=== PATIENT | male | born 2000 ===

== ENCOUNTER → 2020-06-30 | Outpatient (CLI) | payer SELFPAY ==
[~2020-06-30] MED LIST: COVID-19 VACCINE (PFIZER)/PF 30 MCG/0.3 ML VIAL IM ONE; EPINEPHRINE INJ/PF 1 MG/1 ML AMPULE IM PRN
--- OUTSIDE RECORDS SUMMARY | 2020-07-03 10:07 | XMS REPORT ---
:2000 [facility] [address] [place] [address] Care Team Providers Name Role Phone [facility] Physician Yasmin Tabor PA-C Attending Clinician Unavailable KHADRA Stallworth Attending Clinician Unavailable KHADRA Stallworth T Attending Clinician Unavailable AMI ALLAN Attending Clinician Unavailable Corrine ALLAN Attending Clinician Unavailable Anahy MURRY Attending Clinician Unavailable Anahy MENDEZ PA-C Attending Clinician Unavailable SERA CHAVEZ Attending Clinician Unavailable ANA LAMBERT Attending Clinician Unavailable CAMILLE Attending Clinician Unavailable GARRET Attending Clinician Unavailable SHIVANI Attending Clinician Unavailable ROSSY Attending Clinician Unavailable JEANMARIE Attending Clinician Unavailable KHADRA Stallworth T Admitting Clinician Unavailable Juan R HYLTON PSY.D Admitting Clinician Unavailable TELEPSYCH Admitting Clinician Unavailable Allergies, Adverse Reactions, Alerts This patient has no known allergies or adverse reactions. Medications Ordered Filled Start Stop Current Ordering Indication Dosage Frequency Signature Comments Components Medication Medication Date Date Medication? Clinician (SIG) Name Name propranolol 2020- No 10mg Take 1 Take 1 (INDERAL) 02-10 tablet (10 table t 10 MG 00:00: 23:59 mg total) (10 mg tablet 00 :00 by mouth total) by Two (2) mouth Two times a (2) times day. a day. divalproex 2018- Yes Take two Take two (DEPAKOTE) 5-[address] tablets tablets [address] 00:00: and night and n ight tablet 00 (total (total 1000mg) 1000mg) and take 1 and take tablet in 1 tablet the in the morning morning (along (along with a with a 250mg 250mg pill) pill) divalproex Yes Take one Take one (DEPAKOTE) 5-31 tablet in table t in [address] 00:00: the the tablet 00 morning morning (along (along with 500mg with tablet of 500mg Depakote) tablet of Depakote) propranolol 2018- No 10mg Take 1 Take 1 (INDERAL) 5-31 -31 tablet (10 table t 10 MG 00:00: 00:00 mg total) (10 mg tablet 00 :00 by mouth total) by Two (2) mouth Two times a (2) times day. a day. divalproex 2018- No Take two Take two (DEPAKOTE) 5-17 05-31 tablets tablets [address] 00:00: 00:00 and night and n ight tablet 00 :00 (total (total 1000mg) 1000mg) and take 1 and take tablet in 1 tablet the in the morning morning (along (along with a with a 250mg 250mg pill) pill) divalproex 2018- No Take one Take one (DEPAKOTE) 5-17 -31 tablet in table t in [address] 00:00: 00:00 the the tablet 00 :00 morning morning (along (along with 500mg with tablet of 500mg Depakote) tablet of Depakote) fluticasone 2019- No 1{spray 1 spray by 1 spray propionate 09-01 } Each Nare by Ea (FLONASE) 00:00: 23:59 route Nare 50 00 :00 daily. route mcg/actuati daily. on nasal spray propranolol 2018- No 10mg Take 1 Take 1 (INDERAL) -27 -31 tablet (10 table t 10 MG 00:00: 00:00 mg total) (10 mg tablet 00 :00 by mouth total) by Two (2) mouth Two times a (2) times day. a day. omega-3 2018- No 1{capsu Take 1 Take 1 fatty 2-08 le} capsule by capsule acids-fish 13:04: mouth. by mout h. oil 10 340-1,000 mg capsule omega-3 0 Yes 1{capsu Take 1 Take 1 fatty 2-08 le} capsule by capsule acids-fish 13:04: mouth. by mout h. oil 10 340-1,000 mg capsule divalproex No Take two Take two (DEPAKOTE) 2-[address] tablets tablets [address] 00:00: and night and n ight tablet 00 (total (total 1000mg) 1000mg) and take 1 and take tablet in 1 tablet the in the morning morning (along (along with a with a 250mg 250mg pill) pill) divalproex No Take one Take one (DEPAKOTE) 2-08 tablet in table t in [address] 00:00: the the tablet 00 morning morning (along (along with 500mg with tablet of 500mg Depakote) tablet of Depakote) divalproex No Take two Take two (DEPAKOTE) 2-[address] tablets tablets [address] 00:00: and night and n ight tablet 00 (total (total 1000mg) 1000mg) and take 1 and take tablet in 1 tablet the in the morning morning (along (along with a with a 250mg 250mg pill) pill) divalproex No Take one Take one (DEPAKOTE) 2-08 tablet in table t in [address] 00:00: the the tablet 00 morning morning (along (along with 500mg with tablet of 500mg Depakote) tablet of Depakote) divalproex 2017-06- No 500MG Take 1 Take 1 (DEPAKOTE) 0-30 02-[address] tablet tablet [address] 00:00: 00:00 (500 mg (500 mg tablet 00 :00 total) by total) by mouth Two mouth Two (2) times (2) times a day. a day. divalproex 2017-06- No 250MG Take 1 Take 1 (DEPAKOTE) 0-30 02-[address] tablet tablet [address] 00:00: 00:00 (250 mg (250 mg tablet 00 :00 total) by total) by mouth Two mouth Two (2) times (2) times a day. a day. divalproex 2017- No 250MG Take 1 Take 1 (DEPAKOTE) 9-12 10-[address] tablet tablet [address] 00:00: 00:00 (250 mg (250 mg tablet 00 :00 total) by total) by mouth mouth every every morning. morning. divalproex 2017- No 500MG Take 1 Take 1 (DEPAKOTE) 9-12 10-[address] tablet tablet [address] 00:00: 00:00 (500 mg (500 mg tablet 00 :00 total) by total) by mouth Two mouth Two (2) times (2) times a day. a day. sertraline 2017- No Take 37.5 Take 37.5 (ZOLOFT) 25 6-08 10-30 mg for two mg for MG tablet 00:00: 00:00 weeks, two 00 :00 then weeks, increase then to 50 mg. increase to 50 mg. divalproex 2017- No 250MG Take 1 Take 1 (DEPAKOTE) 11-1312 tablet tablet [address] 00:00: 00:00 (250 mg (250 mg tablet 00 :00 total) by total) by mouth mouth every every morning. morning. divalproex 2017- No 500MG Take 1 Take 1 (DEPAKOTE) 11-1312 tablet tablet [address] 00:00: 00:00 (500 mg (500 mg tablet 00 :00 total) by total) by mouth Two mouth Two (2) times (2) times a day. a day. sertraline 2017- No TAKE 1/2 TAKE 1/2 (ZOLOFT) 25 -24 06-08 TABLET(12. TAB LET(12 MG tablet 00:00: 00:00 5 MG) BY .5 MG) BY 00 :00 MOUTH MOUTH DAILY. DAILY. START AT START AT 12.5 MG 12.5 MG EVERY DAY EVERY DAY FOR 2 FOR 2 WEEKS, WEEKS, THEN. THEN. INCREASE INCREASE TO 25 MG TO 25 MG EVERY DAY EVERY DAY cholecalcif Yes 2000U Take 1 Take 1 anahi, 3-14 tablet tablet vitamin D3, 00:00: (2,000 (2,000 2,000 unit 00 Units Units tablet total) by total) by mouth mouth daily. daily. 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 nightly. 49 divalproex 2017- No 500MG Take 1 Take 1 (DEPAKOTE) 3-[address] tablet tablet [address] 00:00: 00:00 (500 mg (500 mg tablet 00 :00 total) by total) by mouth Two mouth Two (2) times (2) times a day. a day. divalproex 2017- No 250MG Take 1 Take 1 (DEPAKOTE) 08-11-[address] tablet tablet [address] 00:00: 00:00 (250 mg (250 mg tablet 00 :00 total) by total) by mouth mouth every every morning. morning. omega-3 No 1{capsu Take 1 Take 1 fatty 09-12 le} capsule by capsule acids-fish 13:40: mouth. by mout h. oil 35 340-1,000 mg capsule levothyroxi 2017- No TK 1 T PO TK 1 T PO ne 08-13 10-30 QD QD (SYNTHROID, 00:00: 00:00 LEVOTHROID) 00 :00 50 MCG tablet Benztropine No Moy 1 Once Per Mesylate 07-30 Do Day (Cogentin*) 00:00: 00:00 1 Mg 00 :00 Tablet, 1 Mg Oral Divalproex No Moy 500 Twice Per Sodium 07-30 Day (Depakote 00:00: 00:00 Dr Tab*) 00 :00 500 Mg Tablet.dr, 500 Mg Oral Hydroxyzine 2017- No Moy 50 Every 6 Pamoate 07-30 Warner Do Hours as (Vistaril*) 00:00: 00:00 needed for 50 Mg 00 :00 Anxiety/Ag Capsule, 50 itation Mg Oral Olanzapine 2017- No Moy 5 Once Per (Zyprexa*) 07-30 Do Day At 5 Mg 00:00: 00:00 Bedtime Tablet, 5 00 :00 Mg Oral Trimethopri No Brooks L 2 Twice Per m/Sulfameth 01-[address] [facility] Day oxazole 00:00: 00:00 Mendez (Bactrim 00 :00 Ds*) 800/160 Mg Tab, 2 Tab Oral Trimethopri 2014-06 No Brooks L 2 Twice Per m/Sulfameth 07-09 [facility] Day oxazole 00:00: 00:00 Roberto (Bactrim 00 :00 Ds*) 800/160 Mg Tab, 2 Tab Oral Trimethopri 2014- No Tara 2 Twice Per m/Sulfameth 11-05 Sell Do Day oxazole 00:00: 00:00 (Bactrim 00 :00 Ds*) 800/160 Mg Tab, 2 Tab Oral Cholecalcif Yes 2000 Once Per anahi Day (Vitamin D Tab*) 1,000 Unit Tab Clonazepam Yes .5 Twice Per (Klonopin*) Day 0.5 Mg Tablet Fish Oil Yes 1000 Twice Per (Berwick 3 Day Fish Oil Cap*) 1,000 Mg Cap Lactobacill No 1 Twice Per us* Day (Lactinex*) 1 Ea Tab Levothyroxi Yes 50 Daily ne Sodium Before (Synthroid* Breakfast ) 50 Mcg Tablet Melatonin Yes 5 Once Per (Melatonin* Day At ) 5 Mg Bedtime Tablet Metformin Yes 500 Daily With Hcl Morning (Glucophage Meal *) 500 Mg Tab Methylpheni Yes 27 Once Per date Hcl Day (Concerta*) 27 Mg Tab.er.24 Multivitami No 1 Once Per ns/Minerals Day * (Multivitam ins/Mineral s Tab*) 1 Each Tablet Olanzapine Yes 2.5 Once Per (Zyprexa*) Day At 2.5 Mg Bedtime Tablet Polyethylen No 17 Once Per e Glycol Day as (Miralax*) needed for 1 Btl Constipati on Terbinifine No 1 Twice Per * (Lamisil Day Af*) 15 Gm Cream..g. Melatonin No 5 Once Per (Melatonin* Day At ) 5 Mg Bedtime Tablet Lactobacill 2017- No 1 Twice Per us* - Day (Lactinex*) 00:00 1 Ea Tab, 1 :00 Tab Oral Multivitami 2017- No 1 Once Per ns/Minerals - Day (Multivitam 00:00 ins/Mineral :00 s Tab) 1 Each Tablet, 1 Tab Oral Polyethylen No 17 Once Per e Glycol 07-25 Day as (Miralax*) 00:00 needed for 1 Btl, 17 :00 Constipati Gm Oral on Terbinafine 2016- No 1 Twice Per Hcl 07-25 Day (Lamisil Af 00:00 Cream*) 15 :00 Gm Cream..g., 1 Applic Applied To The Skin Polyethylen 2017- No 17 Once Per e Glycol 07-25 Day as (Miralax) 1 00:00 needed for Btl, 17 Gm :00 Constipati Oral on Problems Condition Condition Condition Status Onset Resolution Last Treatin g Comments Name Details Category Date Date Treatment Clinician Date Left ankle Problem Resolve 0 sprain d 7-13 15:25: 00 Left leg Problem Inactiv 2018-0 pain e 5-20 21:39: 00 Left leg Problem Resolve 0 pain d 5-20 21:39: 00 Encounter Problem Inactiv for wound e - re-check 18:56: 00 Encounter Problem Inactiv 0 for wound e 08-27 re-check 18:56: 00 Encounter Problem Active 0 for wound - re-check 18:56: 00 Cellulitis Problem Inactiv 2017-0 e 3-10 14:43: 00 Cellulitis Problem Inactiv 0 e - 14:43: 00 Cellulitis Problem Inactiv 0 e 3-10 14:43: 00 Cellulitis Problem Active 0 -10 14:43: 00 Prader-Will Prader-Will Condition Active 2016-10-05 i syndrome i syndrome 10-05 16:44:01 00:00: 00 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), combined type Anxiety Problem Inactiv disorder e 08-04 due to 15:57: medical 00 condition Behavior Problem Inactiv problem at e 08-04 school 15:57: 00 Prader-Will Problem Inactiv i syndrome e 08-04 15:57: 00 ADHD Problem Inactiv (attention e 2-27 deficit 15:57: hyperactivi 00 ty disorder), combined type Anxiety Problem Inactiv disorder e 08-04 due to 15:57: medical 00 condition Behavior Problem Inactiv problem at e 08-04 school 15:57: 00 Prader-Will Problem Inactiv i syndrome e 08-04 15:57: 00 ADHD Problem Inactiv (attention e 2-27 deficit 15:57: hyperactivi 00 ty disorder), combined type Anxiety Problem Inactiv disorder e 08-04 due to 15:57: medical 00 condition Behavior Problem Inactiv 2017- problem at e 2-27 school 15:57: 00 Prader-Will Problem Inactiv i syndrome e 08-04 15:57: 00 ADHD Problem Active (attention 08-04 deficit 15:57: hyperactivi 00 ty disorder), combined type Anxiety Problem Active disorder 08-04 due to 15:57: medical 00 condition Behavior Problem Active 2016- problem at - school 15:57: 00 Prader-Will Problem Active i syndrome 08-04 15:57: 00 Involuntary Involuntary Problem Inactiv 2016- commitment commitment e 2 16:40: 00 Prader-Will Prader-Will Problem Inactiv i syndrome i syndrome e 2 16:40: 00 Involuntary Problem Inactiv commitment e 2 16:40: 00 Prader-Will Problem Inactiv i syndrome e 2 16:40: 00 Involuntary Problem Inactiv 2016- commitment e 2 16:40: 00 Prader-Will Problem Inactiv i syndrome e 2 16:40: 00 Involuntary Problem Inactiv 2016- commitment e 2 16:40: 00 Prader-Will Problem Inactiv i syndrome e 2 16:40: 00 Involuntary Problem Active 2016-0 commitment 2-22 16:40: 00 Prader-Will Problem Active 2016- i syndrome 222 16:40: 00 Behavior Behavior Problem Inactiv 2017-0 problem at problem at e 2-15 school school 14:40: 00 Behavior Problem Inactiv 2017-0 problem at e 2-15 school 14:40: 00 Behavior Problem Inactiv 2017-0 problem at e 2-15 school 14:40: 00 Behavior Problem Inactiv 2017-0 problem at e 2-15 school 14:40: 00 Behavior Problem Active 2017-0 problem at 2-15 school 14:40: 00 Aggressive Aggressive Problem Inactiv 2015-06 behavior of behavior of e 06-15 adolescent adolescent 18:53: 00 History of History of Problem Inactiv 2015-06 Prader-Will Prader-Will e 06-15 i syndrome i syndrome 18:53: 00 Aggressive Problem Inactiv 2015-06 behavior of e 06-15 adolescent 18:53: 00 History of Problem Inactiv 2015-06 Prader-Will e 06-15 i syndrome 18:53: 00 Aggressive Problem Inactiv 2015-06 behavior of e -08 adolescent 18:53: 00 History of Problem Inactiv 2015-06 Prader-Will e 06-15 i syndrome 18:53: 00 Aggressive Problem Inactiv 2015-06 behavior of e -08 adolescent 18:53: 00 History of Problem Inactiv 2015-06 Prader-Will e 06-15 i syndrome 18:53: 00 Aggressive Problem Active 2015-06 behavior of 08 adolescent 18:53: 00 History of Problem Active 2015-06 Prader-Will 06-15 i syndrome 18:53: 00 Contusion Contusion Problem Inactiv 2015-0 of lower of leg e 03-02 extremity 14:24: 00 Contusion Problem Inactiv 2015-0 of leg e 03-02 14:24: 00 Contusion Problem Inactiv 2015-0 of leg e 03-02 14:24: 00 Contusion Problem Inactiv 2015-0 of leg e 03-02 14:24: 00 Contusion Problem Active 2015-0 of leg 03-02 14:24: 00 Cellulitis Cellulitis Problem Inactiv and abscess and abscess e 8-15 of lower of leg 11:51: extremity 00 Cellulitis Problem Inactiv 0 and abscess e 8-15 of leg 11:51: 00 Cellulitis Problem Inactiv 0 and abscess e 8-15 of leg 11:51: 00 Cellulitis Problem Inactiv 0 and abscess e 8-15 of leg 11:51: 00 Cellulitis Problem Active and abscess 8-15 of leg 11:51: 00 Right ankle Right ankle Problem Inactiv 2015-0 sprain sprain e 16 23:54: 00 Right ankle Problem Inactiv 2015-0 sprain e 16 23:54: 00 Right ankle Problem Inactiv 2015-0 sprain e 16 23:54: 00 Right ankle Problem Inactiv 2015-0 sprain e 16 23:54: 00 Right ankle Problem Active 2015-0 sprain 16 23:54: 00 Abscess Abscess Problem Inactiv 2014-0 e 11-05 16:26: 00 Abscess Problem Inactiv 2014-0 e 11-05 16:26: 00 Abscess Problem Inactiv 0 e 11-05 16:26: 00 Abscess Problem Inactiv 0 e 11-05 16:26: 00 Abscess Problem Active 0 11-05 16:26: 00 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 Procedures Procedure Date / Time Performed Performing Clinician Kenna trinidad EMERGENCY DEPT VISIT 2017-08-15 00:00:00 [place] 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 Comparison: None Technique: 3 views of left foot and 4 views of left ankle Findings: T he osseous structures are normal alignment. The joint spaces are maintained. There are no acute f ractures. There is diffuse subcutaneous edema. IMPRESSION: No evidence for acute osseous in jury to the left ankle or foot. Final report electronically signed by: Rick Joseph MD Signed by: RICK JOSEPH MD 12/18/18 1266 cc: LAUREANO LAM PA-C, DENNIS MD RADIOLOGY 2018-12-18 [facility] 14:55:[address] [place] [id number] Patient: BLESSING BEARD : 2000 Sex: M Address: [address] [place] [address] [place], [place] [address] Unit #: [id number] RE SEQ #: [id number] Location: [facility] Room #: Ordering: LAUREANO LAM PA-C Diagnosis: LT LEG INJURY/YESTERDAY History: Injured leg yesterday. Comparison: None Technique: 3 views of left foot and 4 views of left ankle Findings: T he osseous structures are normal alignment. The joint spaces are maintained. There are no acute f ractures. There is diffuse subcutaneous edema. IMPRESSION: No evidence for acute osseous in jury to the left ankle or foot. Final report electronically signed by: Rick Joseph MD Signed by: RICK JOSEPH MD 12/18/18 [id number] cc: LAUREANO LAM PA-C, DENNIS MD ULTRASOUND 2018-10-25 [facility] 21:00:00 3500 [facility] [address] Patient: BLESSING BEARD : 2000 Sex: M Address: [address] [place] [address] [place], [place] [address] Unit #: [id number] REQ SEQ #: [id number] Location: [facility] Room #: Ordering: LATRICE BLACKWELL Diagnosis: R ARM/L ANKLE PAIN Clinical History: Left lower extremity pain a nd edema. Comparison: 03/02/2016. Findings: Grayscale and color Doppler evaluation with spectral analysis left lower extremity veins. Left external iliac vein is patent with normal wave form. There is normal flow and compressibility left common femoral, superficial femoral and po pliteal veins. The left greater saphenous and profunda femoral veins are patent. Posterior tibi al and peroneal veins are patent. For comparison, the right common femoral vein is patent. Imp ression: No evidence of deep vein thrombosis left lower extremity. Final report yon ashraf signed by: Silver Zavala MD Signed by: SILVER ZAVALA MD 10/25/182055 cc: Baltazar BAZAN HEATHER M MD RADIOLOGY 2018-10-25 [facility] 20:24:[address] [place] [address] [id number] Patient: BLESSING BEARD : 2000 Sex: M Address: [address] [place] [address] [place], [place] [address] [id number] #: [id number] [facility] SEQ #: [id number] Location: [facility] Room #: Ordering: LATRICE BLACKWELL Diagnosis: R ARM/L ANKLE PAIN Exam: 2 views of the left tibia and fibula, 3 vi ews of the left ankle and 3 views of the left foot DATE OF EXAM: 10/25/2018 INDICATIONS: Andrei n COMPARISON: Left tibia and fibula 03/02/2016 FINDINGS: Tibia and fibula: There is no fracture. Ankle and foot: There is no fracture or dislocation. The ankle mortise appears intact. IMPRESSION: No acute osseous abnormality. Final report electronically s igned by: Maria Solis MD Signed by: SIMONA SOLIS MD 10/25/182019 cc: LATRICE BAZAN ROSEMARY H MD RADIOLOGY 2018-10-25 [facility] 20:24:[address] [place] [address] [id number] Patient: BLESSING BEARD : 2000 Sex: M Address: [address] [place] [address] [place], [place] [address] Unit #: [id number] REQ SEQ #: [id number] Location: [facility] Room #: Ordering: LATRICE BLACKWELL Diagnosis: R ARM/L ANKLE PAIN Exam: 2 views of the left tibia and fibula, 3 vi ews of the left ankle and 3 views of the left foot DATE OF EXAM: 10/25/2018 INDICATIONS: Andrei n COMPARISON: Left tibia and fibula 03/02/2016 FINDINGS: Tibia and fibula: There is no fracture. Ankle and foot: There is no fracture or dislocation. The ankle mortise appears intact. IMPRESSION: No acute osseous abnormality. Final report electronically s igned by: Maria Solis MD Signed by: SIMONA SOLIS MD 10/25/182019 cc: LATRICE BAZAN ROSEMARY H MD RADIOLOGY 2018-10-25 [facility] 20:24:00 3500 [facility] [id number] Patient: BLESSING BEARD : 2000 Sex: M Address: [address] [place] [address] [place], [place] [address] Unit #: [id number] REQ SEQ #: [id number] Location: [facility] Room #: Ordering: LATRICE BLACKWELL Diagnosis: R ARM/L ANKLE PAIN Exam: 2 views of the left tibia and fibula, 3 vi ews of the left ankle and 3 views of the left foot DATE OF EXAM: 10/25/2018 INDICATIONS: Andrei n COMPARISON: Left tibia and fibula 03/02/2016 FINDINGS: Tibia and fibula: There is no fracture. Ankle and foot: There is no fracture or dislocation. The ankle mortise appears intact. IMPRESSION: No acute osseous abnormality. Final report electronically s igned by: Maria Solis MD Signed by: SIMONA SOLIS MD 10/25/182019 cc: LATRICE BAZAN ROSEMARY H MD RADIOLOGY 2017-03-[address] [address] 22:02:00 Patient: BLESSING BEARD : [birth year] Sex: M Address: [address] [place] [address] [place], [place] [address] Unit #: [id number] RE SEQ #: [id number] Location: [facility] Room #: Ordering: AXEL PEREZ Diagnosis: [id number] History: Pain in the right lower extremity for 2 weeks. Comparison: Right leg and ankle performed on 06/23/2015 Technique: 4 vie ws of the right knee, AP and lateral radiographs of the right leg and 3 views of the right ankle. Findings: Alignment of the knee is normal. The joint spaces are maintained. There is no arth ropathy or focal osseous abnormality. The tibia and fibula appear within normal limits. No focal osseous abnormalities are noted. There is no periosteal reaction. Alignment of the ankle is normal. Ankle mortise is maintained. A small sub-tibial or ossicle is chronic. There is no arthropa thy or focal osseous abnormality. There is diffuse thickening of the subcutaneous sof t tissues. Impression: 1. Unremarkable appearance to the right knee, right leg and right ankle. Final report electronically signed by: Rick Joseph MD Signed by: MARGARITA JOSEPH MD 03/19/17 [id number] cc: AXEL [facility] RICK JOSEPH MD RADIOLOGY 2017-03-[address] [address] 22:02:00 Patient: BLESSING BEARD : [birth year] Sex: M Address: [address] [facility] [place], [place] [address] [id number] Unit #: [id number] REQ SEQ #: [id number] Location: [facility] Room #: Ordering: AXEL PEREZ Diagnosis: [id number] History: Pain in the right lower extremity for 2 weeks. Comparison: Right leg and ankle performed on 06/23/2015 Technique: 4 vie ws of the right knee, AP and lateral radiographs of the right leg and 3 views of the right ankle. Findings: Alignment of the knee is normal. The joint spaces are maintained. There is no arth ropathy or focal osseous abnormality. The tibia and fibula appear within normal limits. No focal osseous abnormalities are noted. There is no periosteal reaction. Alignment of the ankle is normal. Ankle mortise is maintained. A small sub-tibial or ossicle is chronic. There is no arthropa thy or focal osseous abnormality. There is diffuse thickening of the subcutaneous sof t tissues. Impression: 1. Unremarkable appearance to the right knee, right leg and right ankle. Final report electronically signed by: Rick Joseph MD Signed by: MARGARITA JOSEPH MD 03/19/17 1235 cc: AXEL LAMBERT DENNIS MD RADIOLOGY 2017-03-[address] [id number] 22:02:00 Patient: BLESSING BEARD : [birth year] Sex: M Address: [address] [place] [address] [place], [place] [address] Unit #: [id number] [facility] SEQ #: [id number] Location: [facility] Room #: Ordering: AXEL PEREZ Diagnosis: [id number] History: Pain in the right lower extremity for 2 weeks. Comparison: Right leg and ankle performed on 06/23/2015 Technique: 4 vie ws of the right knee, AP and lateral radiographs of the right leg and 3 views of the right ankle. Findings: Alignment of the knee is normal. The joint spaces are maintained. There is no arth ropathy or focal osseous abnormality. The tibia and fibula appear within normal limits. No focal osseous abnormalities are noted. There is no periosteal reaction. Alignment of the ankle is normal. Ankle mortise is maintained. A small sub-tibial or ossicle is chronic. There is no arthropa thy or focal osseous abnormality. There is diffuse thickening of the subcutaneous sof t tissues. Impression: 1. Unremarkable appearance to the right knee, right leg and right ankle. Final report electronically signed by: Rick Joseph MD Signed by: MARGARITA JOSEPH MD 03/19/17 [id number] cc: AXEL LAMBERT STEEL UNLOADERRICK LUNA MD Valproate level 2016-07-30 14:30:00 Test Item Value Reference Range Comments Valproate level (test code = 4086-5) 81.2 50.0-120.0 Total bilirubin measurement (moles/volume)2016-07-25 20:35:00 Test Item Value Reference Range Comments Total bilirubin measurement (moles/volume) (test code 0.9 0.2-1.3 = 03844-2) Total protein [id number] 20:35:00 Test Item Value Reference Range Comments Total protein blood (test code = 2885-2) 6.9 6.3-8.2 Serum or plasma albumin measurement (mass/volume)2016-07-25 20:35:00 Test Item Value Reference Range Comments Serum or plasma albumin measurement (mass/volume) 4.0 3.5-5.0 (test code = 1751-7) Serum globulin qlxooemdskn2898-62-68 20:35:00 Test Item Value Reference Range Comments Serum globulin measurement (test code = 125566438) 2.9 1.2-3.2 Serum or plasma albumin/globulin mass laeer2277-23-39 20:35:00 Test Item Value Reference Range Comments Serum or plasma albumin/globulin mass ratio (test code 1.4 1.1-2.5 = 1759-0) Aspartate aminotransferase (AST) to alanine aminotransferase (ALT) ratio 2016-07-25 20:35:00 Test Item Value Reference Range Comments Aspartate aminotransferase (AST) to alanine 37 17-5 9 aminotransferase (ALT) ratio (test code = 1916-6) Alkaline phosphatase isoenzymes gosmnhyusfe0683-62-35 20:35:00 Test Item Value Reference Range Comments Alkaline phosphatase isoenzymes measurement (test code 163 81-126 = 10462-8) Serum or plasma alanine aminotransferase measurement (enzymatic activity/volume) 2016-07-25 20:35:00 Test Item Value Reference Range Comments Serum or plasma alanine aminotransferase measurement 80 21.0-72.0 (enzymatic activity/volume) (test code = 1742-6) Blood leukocytes automated count (number/volume)2016-07-25 20:35:00 Test Item Value Reference Range Comments Blood leukocytes automated count (number/volume) (test 10.7 3.6-11.1 code = 6690-2) Blood erythrocytes automated count (number/volume)2016-07-25 20:35:00 Test Item Value Reference Range Comments Blood erythrocytes automated count (number/volume) 5.44 4.20-5.60 (test code = 789-8) Blood hemoglobin measurement (mass/volume)2016-07-25 20:35:00 Test Item Value Reference Range Comments Blood hemoglobin measurement (mass/volume) (test code 15.5 12.5-16.1 = 718-7) Automated blood hematocrit (volume fraction)2016-07-25 20:35:00 Test Item Value Reference Range Comments Automated blood hematocrit (volume fraction) (test 46.8 37.7-46.5 code = 4544-3) Automated erythrocyte mean corpuscular swzkeo9417-51-32 20:35:00 Test Item Value Reference Range Comments Automated erythrocyte mean corpuscular volume (test 86.0 79.3-94.8 code = 787-2) Automated erythrocyte mean corpuscular hemoglobin (mass per erythrocyte) 2016-07-25 20:35:00 Test Item Value Reference Range Comments Automated erythrocyte mean corpuscular hemoglobin 28.5 26.8-33.2 (mass per erythrocyte) (test code = 785-6) Automated erythrocyte mean corpuscular hemoglobin concentration measurement (mass/volume)2016-07-25 20:35:00 Test Item Value Reference Range Comments Automated erythrocyte mean corpuscular hemoglobin 33.1 33.5-35.5 concentration measurement (mass/volume) (test code = 786-4) Automated erythrocyte distribution width fwawc8788-63-71 20:35:00 Test Item Value Reference Range Comments Automated erythrocyte distribution width ratio (test 14.4 12.0-15.1 code = 788-0) Automated blood platelet count (count/volume)2016-07-25 20:35:00 Test Item Value Reference Range Comments Automated blood platelet count (count/volume) (test 240 165-353 code = 777-3) Automated blood platelet mean volume qrasagsbvad7756-32-75 20:35:00 Test Item Value Reference Range Comments Automated blood platelet mean volume measurement (test 9.1 7.5-10.6 code = 43819-7) Automated blood neutrophil count as percentage of total lhuuuvlvwp7703-71-47 20:35:00 Test Item Value Reference Range Comments Automated blood neutrophil count as percentage of 56.3 38.0-63.0 total leukocytes (test code = 770-8) Automated blood lymphocyte count as percentage of total vuusjqfubi1837-51-68 20:35:00 Test Item Value Reference Range Comments Automated blood lymphocyte count as percentage of 32.7 25.0-33.0 total leukocytes (test code = 736-9) Automated blood monocyte count as percentage of total icapftshau5338-74-42 20:35:00 Test Item Value Reference Range Comments Automated blood monocyte count as percentage of total 8.5 0.0-12.4 leukocytes (test code = 5905-5) Automated blood eosinophil count as percentage of total uaqhdxhsdb0565-93-11 20:35:00 Test Item Value Reference Range Comments Automated blood eosinophil count as percentage of 1.8 0.7-7.8 total leukocytes (test code = 713-8) Automated blood basophil count as percentage of total dzxrbcnlil0455-69-44 20:35:00 Test Item Value Reference Range Comments Automated blood basophil count as percentage of total 0.7 0.2-1.2 leukocytes (test code = 706-2) Blood neutrophils automated count (number/volume)2016-07-25 20:35:00 Test Item Value Reference Range Comments Blood neutrophils automated count (number/volume) 6.0 1.9-7.2 (test code = 751-8) Automated blood lymphocyte count (number/volume)2016-07-25 20:35:00 Test Item Value Reference Range Comments Automated blood lymphocyte count (number/volume) (test 3.5 1.1-2.7 code = 731-0) Blood monocytes automated count (number/volume)2016-07-25 20:35:00 Test Item Value Reference Range Comments Blood monocytes automated count (number/volume) (test 0.9 0.3-0.8 code = 742-7) Automated blood eosinophil phjxf6512-05-96 20:35:00 Test Item Value Reference Range Comments Automated blood eosinophil count (test code = 711-2) 0.2 0.0-0.5 Automated blood basophil count (count/volume)2016-07-25 20:35:00 Test Item Value Reference Range Comments Automated blood basophil count (count/volume) (test 0.1 0.0-0.1 code = 704-7) Serum sodium csykqkidgrw6879-57-25 20:35:00 Test Item Value Reference Range Comments Serum sodium measurement (test code = 2951-2) 141 13 7-145 Serum potassium gvpftolianh2186-86-34 20:35:00 Test Item Value Reference Range Comments Serum potassium measurement (test code = 2823-3) 4.2 3.5-5.1 Chloride ser/nztt9486-76-97 20:35:00 Test Item Value Reference Range Comments Chloride ser/plas (test code = 2075-0) 103 98-107 Carbon dioxide ejfipulsnuc3943-43-04 20:35:00 Test Item Value Reference Range Comments Carbon dioxide measurement (test code = 69858788) 24 22-30 Serum or plasma glucose measurement (mass/volume)2016-07-25 20:35:00 Test Item Value Reference Range Comments Serum or plasma glucose measurement (mass/volume) 135 74-106 (test code = 2345-7) Serum or plasma urea nitrogen measurement (mass/volume)2016-07-25 20:35:00 Test Item Value Reference Range Comments Serum or plasma urea nitrogen measurement 10 9-20 (mass/volume) (test code = 3094-0) Serum or plasma creatinine measurement (moles/volume)2016-07-25 20:35:00 Test Item Value Reference Range Comments Serum or plasma creatinine measurement (moles/volume) 0.53 0.66-1.25 (test code = 38146-4) Blood anion fgr8333-97-25 20:35:00 Test Item Value Reference Range Comments Blood anion gap (test code = 27255-8) 18 7-16 Serum or plasma calcium measurement (mass/volume)2016-07-25 20:35:00 Test Item Value Reference Range Comments Serum or plasma calcium measurement (mass/volume) 10.1 8.4-10.2 (test code = 63186-5) Urine color dnmubmmwmmpos4536-42-26 11:15:00 Test Item Value Reference Range Comments Urine color determination (test code = 5778-6) YELLOW Urine clarity coygbekmhfsyr6718-44-56 11:15:00 Test Item Value Reference Range Comments Urine clarity determination (test code = 56011-0) CLEAR Specific gravity of Urine by Refractometry phtyodmoz0548-08-90 11:15:00 Test Item Value Reference Range Comments Specific gravity of Urine by Refractometry automated 1.019 1.005-1.030 (test code = 35528-9) Urine jL5452-57-85 11:15:00 Test Item Value Reference Range Comments Urine pH (test code = 2756-5) 6.0 4.7-8.0 Urine leukocyte esterase detection by automated test imkgo9435-46-70 11:15:00 Test Item Value Reference Range Comments Urine leukocyte esterase detection by automated test 0-3 0-3 strip (test code = 86087-9) Urine nitrite qkpvxjwdy4116-77-84 11:15:00 Test Item Value Reference Range Comments Urine nitrite detection (test code = 66483-2) NEGATIVE NE GATIVE Urine protein wkkbmcgku2009-30-26 11:15:00 Test Item Value Reference Range Comments Urine protein detection (test code = 2887-8) TRACE NEG -TRACE Urine glucose kmwxltwoa1600-03-56 11:15:00 Test Item Value Reference Range Comments Urine glucose detection (test code = 2349-9) NEGATIVE NEG ATIVE Urine ketones bulzsowku7872-88-67 11:15:00 Test Item Value Reference Range Comments Urine ketones detection (test code = 48466-8) NEGATIVE NE GATIVE Urine urobilinogen mnkdpiyfiuh6145-64-96 11:15:00 Test Item Value Reference Range Comments Urine urobilinogen measurement (test code = 18697-2) NORMAL NORMAL Urine bilirubin dtlsfvxko5391-04-46 11:15:00 Test Item Value Reference Range Comments Urine bilirubin detection (test code = 1977-8) NEGATIVE N EGATIVE Urine blood ezkebamyn8063-12-60 11:15:00 Test Item Value Reference Range Comments Urine blood detection (test code = 65051-8) NEGATIVE NEGA TIVE UA + eavxnkd7043-64-10 11:15:00 Test Item Value Reference Range Comments UA + culture (test code = NO Urine Culture was not indicated. 58516-5) Automated urine sediment erythrocyte count by microscopy (number/high power field)2016-07-23 11:15:00 Test Item Value Reference Range Comments Automated urine sediment erythrocyte count by 0-3 0- 3 microscopy (number/high power field) (test code = 96088-3) Hyaline casts detection in urine sediment by light dvavuzlswz7322-70-61 11:15:00 Test Item Value Reference Range Comments Hyaline casts detection in urine sediment by light 11-30 NONE SEEN microscopy (test code = 44953-3) Mucus detection in urine sediment by light ubcetdnvsz5368-47-00 11:15:00 Test Item Value Reference Range Comments Mucus detection in urine sediment by light microscopy SMALL (test code = 8247-9) Urine cannabinoids fsmyqhoat0760-80-58 11:15:00 Test Item Value Reference Range Comments Urine cannabinoids detection (test code = 3427-2) NEGATIVE Thrhld:50 Urine phencyclidine measurement (mass/volume)2016-07-23 11:15:00 Test Item Value Reference Range Comments Urine phencyclidine measurement (mass/volume) (test NEGATIVE Thrhld:25 code = 3937-0) Urine cocaine measurement (mass/volume)2016-07-23 11:15:00 Test Item Value Reference Range Comments Urine cocaine measurement (mass/volume) (test code NEGATIVE Thrhld:150 = 3398-5) Urine methamphetamine measurement (mass/volume)2016-07-23 11:15:00 Test Item Value Reference Range Comments Urine methamphetamine measurement (mass/volume) NEGATIVE Thrhld:500 (test code = 3780-4) Urine opiates wxthfvivh9399-23-30 11:15:00 Test Item Value Reference Range Comments Urine opiates detection (test code = 3879-4) NEGATIVE Thr hld:100 Urine amphetamine measurement (mass/volume)2016-07-23 11:15:00 Test Item Value Reference Range Comments Urine amphetamine measurement (mass/volume) (test NEGATIVE Thrhld:500 code = 83152-6) Urine benzodiazepines measurement (mass/volume)2016-07-23 11:15:00 Test Item Value Reference Range Comments Urine benzodiazepines measurement (mass/volume) NEGATIVE Thrhld:150 (test code = 9428-4) Urine tricyclic antidepressant lfgfoevizcd0142-54-17 11:15:00 Test Item Value Reference Range Comments Urine tricyclic antidepressant measurement (test NEGATIVE Thrhld:300 code = 04241-8) Urine methadone measurement (mass/volume)2016-07-23 11:15:00 Test Item Value Reference Range Comments Urine methadone measurement (mass/volume) (test NEGATIVE Thrhld:200 code = 3774-7) Urine barbiturates tsufqqtbo9593-15-66 11:15:00 Test Item Value Reference Range Comments Urine barbiturates detection (test code = 3377-9) NEGATIVE Thrhld:200 Urine oxycodone measurement (mass/volume)2016-07-23 11:15:00 Test Item Value Reference Range Comments Urine oxycodone measurement (mass/volume) (test NEGATIVE Thrhld:100 code = 30442-9) Urine propoxyphene znpyd7314-65-39 11:15:00 Test Item Value Reference Range Comments Urine propoxyphene assay (test code = 25841-9) NEGATIVE T hrhld:300 Urine buprenorphine measurement (mass/volume)2016-07-23 11:15:00 Test Item Value Reference Range Comments Urine buprenorphine measurement NEGATIVE Thrhld:10 This Drug of Abuse SCREEN for (mass/volume) (test code = urine is intended for MEDICAL 3415-7) PURPOSES ONLY. C onfirmation testing by GC/MS is available for send-out cierra ting upon request. THIS TE ST IS NOT FDA APPROVED FOR USE WITH ANY SPECIMEN EXCEPT URINE. WMCBEHWNWZ3773-46-23 14:23:[address] [address] Patient: BLESSING BEARD : 2000 Sex: M Address: [address] [place] [address] [place] [address] [id number] Unit #: [id number] [facility] SEQ #: [id number]: ABEL Room #: Ordering: BROOKS MENDEZ PA-C Diagnosis: LEFT LEG INJURY ------ History: Injured left leg with persistent pain and swelling. Comparison: None Findings: Real time, pulsed and colorDoppler ultrasound were used to evaluate the deep veins of the left lower extremity. There is phasic venous signal and compressibility throughout the common femoral, superficial femoral, popliteal and visualized proximal deep calf veins. The distal external iliac and proximal deep femoral and greater saphenous veins are patent as well. Cutaneous edema and/or hemorrhage is noted in the distal medial left calf. Evaluation of the right groin reveals a normally patent right common femoral vein. Impression: 1. No evidence for left lower extremity deep vein thrombosis as described above. Final report electronically signed by: Rick Joseph MD Signed by:RICK JOSEPH MD 03/02/16 [id number] 13:35:[address] [address] Patient: BLESSING BEARD : 2000 Sex: M Address: [address] [place] [address] [place] [address] Unit #: [id number] [facility] SEQ #: [id number]: ABEL Room #: Ordering: BROOKS MENDEZ PA-C Diagnosis: LEFT LEG INJURY ------ History: Injured left leg. Comparison: None Technique: AP and lateral views of the left leg Findings: The tibia and fibula appear within normal limits. There is no evidence for an acute fracture or other significant osseous abnormality. The ankle and knee are normal alignment. Impression: No evidence foracute osseous injury to the left leg. Final report electronically signed by: Rick Joseph MD Signed by: RICK JOSEPH MD 03/02/16 [id number] 10:48:[address] [address] Patient: BLESSING BEARD : 2000 Sex: M Address: [address] [place] [address] [place] [address] Unit #: [id number] [facility] SEQ #: [id number]: IMAGE Room #: Ordering: PATRICK MURRY MD Diagnosis: R2241 US EXTREMITY RT NONVAS LIMITED Clinical Information: R2241. Lump in right lower extremity in mid medial calf area. History of twisting rightankle playing ball to a half weeks to one month ago. Note is nonpainful lump afterwards. Longitudinal and transverse scans demonstrates an irregular ill-defined 3.7 x 3 x 2.6 cm hypoechoic area with a mildly hyperechoic surrounding zone corresponding to the palpable area. There is no evidenceof a discrete solid mass or fluid collection. Impression: Irregular ill- defined hypoechoic area with a surrounding mildly hyperechoic zone corresponding to the palpable abnormality. No evidence of a discrete solid mass or fluid collection. A MRI scan may be helpful for further evaluation ifclinically indicated. Final report electronically signed by: Asya Awan MD Signed by: ASYA AWAN MD 08/10/15 1043Polysomnography (Standard) Polysomnography (Standard) (08/22/2018 7:14 AM)NarrativePerformed At Identification Last Name: KISHA First Name: Date/Time: 08/21/2018 MR#: [id number] MSLT: No File Name: [id number] Date of : 2000 Height: 5' 9" Age: 17 year Weight: 250.0 lbs Sex: Male BMI: 37.0 Sleep Phys.: Keegan Garcia MD (Jane) Referring Phys.: MD Meng Woods MD Date Dictated: August 25, 2018 History This is a routine polysomnogram. The patient is a 17 year old, who is being evaluated for a sleep-related breathing disorder. Referring Physician: Bindu Thompson Patient History:The patient is a 17 yo M being evaluated for roberto carlos, insomnia. Other Known Medical Issues: Prader-Willi syndrome, Mild roberto carlos, Hypothyroidism, Aggressive behaviors, Morbid obesity, Medications: Depakote, Synthroid, Melatonin, Zoloft, [place] Sleepiness Scale (total score) 6 on PDSS Routine Bedtime:7:30 9 pm Routine Rise Time: 5:30 6:30 am Previous NightsBedtime:9 amRise Time: 6 amTypical Sleep Daytime Activity Caffeine Intake: O Naps: O(total minutes) Alcohol: O Exercise: O(time of day) Anything happen out of the ordinary:No Do you need to be up by a certain time tomorrow?:6 am How do you feel tonight?: O-Brenda Any nasal congestion? No Procedure A multi-channel polysomnogram was recorded digitally and stored using a [employer] polygraph. The input montage provided multiple recording channels of central, temporal and occipital EEG, EOG, submental EMG, arm and leg limb surface EMG, airflow from nasal pressure and nasal/oral thermocouple, intercostal EMG, chest and abdominal movement via respiratory impedance plethysmography belts, end tidal CO2 via a BCI capnograph sampled through a nasal cannula, arterial blood oxygen via a finger probe, and EKG via a modified Lead I. The polysomnograph was reviewed in multiple montages. Time locked digital video was recorded with the polysomnogram and selected segments reviewed. The study was scored using the AASM 2017 guidelines for Hypopneas A. Study Results The study started at 09:46:23 PM and ended at 05:33:08 AM. At the time of initiation of the study the heart rate was 67 bpm, respiratory rate was 12 bpm, end tidal CO2 was 42 torr and the oxygen saturation was 98%. The total recording time was 466.8 minutes with a total sleep time of 434.5 minutes. The patients sleep latency was 0.0 minute(s) with 28.5 minute(s) of wake timerecorded after sleep onset. The REM latency was 102.1 minutes. The sleep efficiency was 93.1%. Totalwake time during the night was 32.0 minute(s), which was 6.1% of the total recording time. The sleepstage percentages are as follows: Stage N1 = 2.4%, Stage N2 = 61.4%, Stage N3= 18.0%, and Stage R (REM sleep) = 18.2%. The overall sleep architecture showed the majority of slow wave sleep to be in theearly part of the night and the majority of the REM sleep to be in the latter part of the night. Respiratory The patient had a total of 36 respiratory event(s) for an AHI of 5.0 per hour. There were 4 obstructive apnea(s), - mixed apnea(s), 9 central apnea(s) and 23 hypopnea(s). 23 event(s) occurred in Stage REM, 13 event(s) were noted in NREM. Total AI was 1.8. These respiratory events were associated with arousals and oxygen desaturation to a low of 91.0%. A total of - RERAs were noted for a RDI of 5.0. Cesar Keller was not noted. The maximal End Tidal CO2 during sleep was 46.4 torr. The patientspent 169.5 minute(s) in sleep supine position with a total of 0 events in NREM sleep in the supine position and 13 events in REM sleep in the supine position. The supine AHI is 4.6 event(s) per hour. The patient spent 265.0 minute(s) in a side body position with 13 events in NREM sleep in the lateraldecubitus position and 10 events in REM sleep in the lateral decubitus position. The lateral positional AHI is 5.2 event(s) per hour. The patient spent 0 minute(s) in the prone position. The patient spent 355.5 minutes in NREM sleep with 13 events during NREM sleep. The NREM AHI is 2.2 event(s) per hour. The patient spent 79.0 minute(s) in REM sleep, of which 17.0 minutes were supine and 62.0 minuteswere lateral. 23 event(s) occurred during REM sleep. The REM AHI is 17.5, REM supine AHI is 45.9, and REM lateral AHI is 9.7 event(s) per hour. The average O2 saturation (SpO2) for the night was 97.0%.For 100.0% of the night at saturation over 90% was monitored, for 0.0% of the night the saturation ranged between 80% and 90% and 0.0% of the night was spent at a saturation between 50% and 80%. The total time spent with O2 saturation =<88% was 0.0 minutes. The average End Tidal CO2 for the night was 39.6 torr, with a total of 0.0 minutes (0.0% of the night) spent at level of 50 torr or above. Limb Movements There were a total of - periodic limb movement events with a PLM Index of 0.There were 81 spontaneous arousal(s) noted with an index of 11.2 arousal(s) per hour of sleep. Other Associated Events The average heart rate in sleep was 63.8 with the average in REM sleep 63.9 and NREM 63.8. The peak heart rate in sleep was 109.0. The patient had no episodes of bradycardia or tachycardia. Thepatient had no events of gastroesophageal reflux, cardiac arrhythmias or epileptiform activity on routine review of the study. The patient had no events suggestive of parasomnia disorder and no events of bruxism were noted. Impressions 1. Mild obstructive sleep apnea with an overall AHI = 5.0.The patients respiratory events were mostly in REM related and worst in REM supine sleep.These respiratory events were associated with arousals and oxygen desaturation to a low of 91.0%. End tidal CO2 measurements were within normal range. 2. Frequent spontaneous arousals and frequent body positional changes throughout the night. Recommendations 1. The patient should be considered for treatmentto promote airway patency. Treatment options include CPAP titration, oral appliance, or oral surgeryin selected cases. Additional adjunctive measures include nasal steroids,lateral positional therapy, trying to achieve weight loss, avoidance of respiratory suppressants, and aggressive treatment of nasal rhinitis. 2. Frequent spontaneous arousals may be in part related to laboratory effect, but the patient should be questioned about other etiologies of sleep disruption.For instance GERD,stimulants (caffeine), medication effects (synthroid should be dosed in the morning for most patients), and irregular sleep schedule, etc. Keegan Garcia MD (Jane) Diplomate of Sleep Medicine, [facility] 1928[facility]1983SLEEPPerforming OrganizationAddressCity/State/ZipcodePhone NumberUNC HCSSLEEP Assessments Condition Name Status Diagnosis Date Treating Clinici an Impacted teeth Active SYSTEM Impacted teeth Active SYSTEM Encounters Start End Encounter Admission Attending Care Care Encounter ID Date/Time Date/Time Type Type Clinicians Facility Department 2016-01-07 [facility] [id number] 00:00:00 2019-07-22 2019-07-22 Outpatient [facility] [id number] 00:00:00 00:00:00 [id number] 2019-07-07 2019-07-07 Outpatient [facility] [id number] 00:00:00 00:00:00 2019-07-05 2019-07-05 Outpatient [facility] [id number] 00:00:00 00:00:00 2019-03-04 2019-03-04 Outpatient [facility] [id number] 00:00:00 23:59:00 [id number] 2019-02-12 2019-02-12 [facility] [id number] 00:00:00 00:00:00 2019-02-08 2019-02-08 [facility] [id number] 00:00:00 00:00:00 2019-01-21 2019-01-21 [facility] [id number] 00:00:00 00:00:00 [id number] 2018-12-18 2018-12-18 Emergency ED [facility] [id number] 13:36:00 15:35:00 2018-11-05 2018-11-05 [facility] [id number] 00:00:00 00:00:00 2018-10-25 2018-10-25 Emergency ED [facility] V000 [id number] 18:29:00 21:54:00 2018-10-14 2018-10-14 Teto Cottrell [facility] [id number] 12:44:00 12:44:00 Teto Stallworth 2018-10-04 2018-10-04 Teto Cottrell [facility] [id number] 10:08:00 10:08:00 Teto Stallworth 2018-09-25 2018-09-26 Outpatient [facility] [id number] 18:29:32 23:59:00 MENG [id number] 2018-09-25 2018-09-26 [facility] [id number] 18:29:32 23:59:00 2018-09-25 2018-09-25 Outpatient [facility] [id number] 00:00:00 00:00:00 MENG [id number] 2018-09-17 2018-09-17 Outpatient [facility] [id number] 00:00:00 00:00:00 [id number] 2018-09-01 2018-09-01 [facility] [id number] 00:00:00 00:00:00 2018-09-01 2018-09-01 [facility] [id number] 00:00:00 00:00:00 2018-08-30 2018-08-30 [facility] [id number] 00:00:00 00:00:00 2018-08-21 2018-08-22 Outpatient [facility], [facility] [id number] 18:24:55 23:59:00 MENG [id number] 2018-08-21 2018-08-22 Outpatient [facility] [facility] [id number] 18:24:55 23:59:00 2018-08-21 2018-08-21 Outpatient [facility] [id number] 00:00:00 00:00:00 [id number] 2018-08-16 2018-08-16 Outpatient JERRELL, [facility] [id number] 10:40:00 10:40:00 MENG 2018-08-14 2018-08-14 Outpatient JERRELL, [facility] [id number] 09:32:00 09:32:00 MENG 2018-08-07 2018-08-07 Outpatient [facility] [id number] 00:00:00 00:00:00 [id number] 2018-07-16 2018-07-16 Outpatient [facility] [id number] 12:48:59 14:39:44 [id number] 2018-07-16 2018-07-16 Outpatient [facility] [id number] 12:48:59 14:39:44 2018-07-16 2018-07-16 Outpatient [facility] [id number] 00:00:00 00:00:00 [id number] 2018-07-02 2018-07-02 Outpatient [facility] [id number] 00:00:00 23:59:00 [id number] 2018-06-28 2018-06-28 Outpatient JERRELL, [facility] [id number] 14:27:00 14:27:00 MENG 2018-05-28 2018-05-28 Outpatient [facility] [id number] 00:00:00 23:59:00 [id number] 2018-05-07 2018-05-07 [facility] [id number] 00:00:00 00:00:00 2018-04-12 2018-04-12 Outpatient [facility] [id number] 00:00:00 00:00:00 2018-04-12 2018-04-12 Outpatient [facility] [id number] 00:00:00 00:00:00 2018-04-10 2018-04-10 Outpatient CORNEL ALLAN, [facility] [id number] 08:39:00 08:39:00 MENG 2018-04-06 2018-04-06 Outpatient [facility] [id number] 00:00:00 00:00:00 2018-04-06 2018-04-06 [facility] [id number] 00:00:00 00:00:00 2018-04-03 2018-04-03 Outpatient CORNEL ALLAN, [facility] [id number] 09:01:00 09:01:00 MENG 2018-04-02 2018-04-02 Outpatient [facility] [id number] 00:00:00 00:00:00 2018-04-01 2018-04-01 Outpatient [facility] [id number] 00:00:00 00:00:00 2018-03-30 2018-03-30 Out[facility] [id number] 00:00:00 00:00:00 2018-03-29 2018-03-29 Outpatient [facility] [id number] 00:00:00 00:00:00 2018-03-26 2018-03-26 Outpatient [facility] [id number] 13:10:25 14:30:28 [id number] 2018-03-26 2018-03-26 Outpatient [facility] [id number] 13:10:25 14:30:28 2018-03-26 2018-03-26 Outpatient [facility] [id number] 13:10:25 13:10:25 [id number] 2018-03-26 2018-03-26 Outpatient [facility] [id number] 00:00:00 00:00:00 [id number] 2018-03-06 2018-03-06 Outpatient [facility] [id number] 00:00:00 00:00:00 2018-02-19 2018-02-19 Outpatient [facility] [id number] 00:00:00 00:00:00 [id number] 2018-02-18 2018-02-18 Outpatient [facility] [id number] 00:00:00 00:00:00 2018-02-17 2018-02-17 Out[facility] [id number] 00:00:00 00:00:00 2018-01-29 2018-01-29 Outpatient [facility] [id number] 00:00:00 00:00:00 [id number] 2018-01-05 2018-01-05 Outpatient EL JEANMARIE, [facility] [id number] 08:12:00 08:12:00 PATRICK 2018-01-04 2018-01-04 [facility] [id number] 00:00:00 00:00:00 2018-01-01 2018-01-01 Outpatient [facility] [id number] 00:00:00 00:00:00 2017-12-16 2017-12-16 Outpatient [facility] [id number] 00:00:00 00:00:00 2017-12-14 2017-12-14 [facility] [id number] 00:00:00 00:00:00 2017-11-20 2017-11-20 Outpatient [facility] [id number] 00:00:00 00:00:00 [id number] 2017-11-18 2017-11-18 Outpatient [facility] [id number] 00:00:00 00:00:00 2017-11-13 2017-11-13 Outpatient [facility] [id number] 14:34:44 15:37:47 [id number] 2017-11-13 2017-11-13 Outpatient [facility] [id number] 14:34:44 15:37:47 2017-11-13 2017-11-13 Outpatient [facility] [id number] 00:00:00 00:00:00 [id number] 2017-08-27 2017-08-27 Emergency ED MENDEZ, [facility] [id number] 18:11:00 19:04:00 BROOKS 2017-08-15 2017-08-15 Emergency ED SCOTT, [facility] [id number] 14:18:00 14:45:00 [place] 2017-08-14 2017-08-14 Outpatient [facility] [id number] 14:36:10 16:09:12 [id number] 2017-08-14 2017-08-14 Outpatient [facility] [id number] 00:00:00 00:00:00 [id number] 2017-07-24 2017-07-24 Outpatient [facility] [id number] 00:00:00 23:59:00 [id number] 2017-06-19 2017-06-19 Outpatient [facility] [id number] 00:00:00 00:00:00 [id number] 2017-03-27 2017-03-27 Outpatient [facility] [id number] 13:53:39 15:17:42 [id number] 2017-03-27 2017-03-27 Outpatient [facility] [id number] 00:00:00 00:00:00 [id number] 2017-03-19 2017-03-19 Outpatient EL FAUSTO, [facility] [id number] 18:17:00 18:17:00 AXEL 2017-01-13 2017-01-13 Outpatient EL CAMILLE, [facility] [id number] 15:23:00 15:23:00 MAGDA 2017-01-02 2017-01-02 Outpatient [facility] [id number] 14:15:35 15:48:21 [id number] 2017-01-02 2017-01-02 Outpatient [facility] [id number] 00:00:00 00:00:00 [id number] 2016-09-26 2016-09-26 Outpatient EL JEANMARIE, [facility] [id number] 11:00:00 11:00:00 PATRICK 2016-09-12 2016-09-15 Outpatient [facility] [id number] 13:29:04 10:26:46 [id number] 2016-09-12 2016-09-12 Outpatient [facility] [id number] 00:00:00 00:00:00 [id number] 2016-09-12 2016-09-12 Outpatient [facility] [id number] 00:00:00 00:00:00 [id number] 2016-07-25 2016-07-30 Emergency ED GARRET, [facility] [id number] 18:35:00 17:04:00 MOY 2016-07-23 2016-07-23 Emergency ED SHIVANI, [facility] [id number] 09:41:00 14:49:00 KASSANDRA 2016-04-15 2016-04-15 Emergency ED ROSSY, [facility] [id number] 17:10:00 18:55:00 ZOHAIB 2016-03-02 2016-03-02 Emergency ED , [facility] [id number] 12:17:00 14:38:00 BROOKS 2016-01-21 2016-01-21 Emergency ED MENDEZ, [facility] [id number] 10:15:00 12:01:00 BROOKS 2015-08-10 2015-08-10 Outpatient EL JEANMARIE, [facility] [id number] 10:02:00 10:02:00 BOUBACARCHRISTIANNE 2015-06-23 2015-06-24 Emergency ED TRIPP MURRY [facility] [id number] 21:34:00 00:17:00 2013-11-23 2013-11-23 Outpatient [facility] [id number] 00:00:00 00:00:00 2013-03-03 2013-03-03 Outpatient [facility] [id number] 00:00:00 00:00:00 2010-06-19 2010-06-19 Outpatient [facility] [id number] 00:00:00 00:00:00 2009-09-16 2009-09-16 Outpatient [facility] [id number] 00:00:00 00:00:00 2009-02-09 2009-02-09 Outpatient [facility] [id number] 00:00:00 00:00:00 Immunizations Ordered Immunization Filled Immunization Date Status Commen ts Refusal Reason Name Name Vaccination Unknown Completed Payers Payer Name Policy Type Policy Number Effective Date Expiration D ate MEDICAID LME [employer] [id number] 2019 00:00:00 [facility] MEDICAID [facility] [id number] 2018 00:00:00 CHOICE FOR CHILDREN Plan of Treatment Planned Activity Planned Date Details Comments Future Scheduled Test [code = ] Future Scheduled Test [code = ] Future Scheduled Test [code = ] Future Scheduled Test [code = ] Future Scheduled Test [code = ] Future Scheduled Test [code = ] Future Scheduled Test [code = ] Future Scheduled Test [code = ] Future Scheduled Test [code = ] Future Scheduled Test [code = ] Future Scheduled Test [code = ] Future Scheduled Test [code = ] Future Scheduled Test [code = ] Future Scheduled Test [code = ] Future Scheduled Test [code = ] Future Scheduled Test [code = ] Future Scheduled Test [code = ] Future Scheduled Test [code = ] Future Scheduled Test [code = ] Future Scheduled Test [code = ] Future Scheduled Test [code = ] Future Scheduled Test [code = ] Future Scheduled Test [code = ] Future Scheduled Test [code = ] Future Scheduled Test [code = ] Future Scheduled Test [code = ] Future Scheduled Test [code = ] Future Scheduled Test [code = ] Future Scheduled Test [code = ] Future Scheduled Test [code = ] Future Scheduled Test [code = ] Future Scheduled Test [code = ] Future Scheduled Test [code = ] Future Scheduled Test [code = ] Future Scheduled Test [code = ] Future Scheduled Test [code = ] Future Scheduled Test [code = ] Future Scheduled Test [code = ] Future Scheduled Test [code = ] Future Scheduled Test [code = ] Future Scheduled Test [code = ] Social History Social Habit Start Date Stop Date Comments Tobacco smoking status NHIS 2018-07-16 00:00:00 2018-07-16 00:00 :00 Alcohol intake 2018-07-16 00:00:00 2018-07-16 00:00:00 Vital Signs Vital Name Observation Time Observation Value Comments WEIGHT 2018-12-18 13:36:00 123.3000 kg HEIGHT 2018-12-18 13:36:00 167.892505 cm WEIGHT 2018-10-25 18:29:00 126.6000 kg HEIGHT 2018-10-25 18:29:00 170.429039 cm WEIGHT 2017-08-27 18:11:00 103.3000 kg WEIGHT 2017-08-15 14:18:00 101.9000 kg WEIGHT 2016-07-25 18:35:00 120.000 kg WEIGHT 2016-07-23 09:41:00 120.300 kg WEIGHT 2016-04-15 17:10:00 113.640 kg WEIGHT 2016-03-02 12:17:00 130.000 kg WEIGHT 2016-01-21 10:15:00 128.000 kg WEIGHT 2016-01-21 09:56:00 128.000 kg WEIGHT 2015-06-23 21:34:00 114 kg Body height 2019-01-12 10:18:38 0.0 in Body height 2018-11-17 23:32:59 0.0 in SYSTOLIC BLOOD PRESSURE 2018-07-16 13:00:00 122 mm[Hg] DIASTOLIC BLOOD PRESSURE 2018-07-16 13:00:00 80 mm[Hg] HEART RATE 2018-07-16 13:00:00 89 /min HEIGHT 2018-07-16 13:00:00 177 cm WEIGHT 2018-07-16 13:00:00 115.395 kg SYSTOLIC BLOOD PRESSURE 2018-03-26 13:22:00 115 mm[Hg] DIASTOLIC BLOOD PRESSURE 2018-03-26 13:22:00 70 mm[Hg] HEART RATE 2018-03-26 13:22:00 71 /min HEIGHT 2018-03-26 13:22:00 174 cm WEIGHT 2018-03-26 13:22:00 106.142 kg SYSTOLIC BLOOD PRESSURE 2017-11-13 14:40:00 144 mm[Hg] DIASTOLIC BLOOD PRESSURE 2017-11-13 14:40:00 82 mm[Hg] HEART RATE 2017-11-13 14:40:00 69 /min HEIGHT 2017-11-13 14:40:00 170.2 cm WEIGHT 2017-11-13 14:40:00 97.342 kg SYSTOLIC BLOOD PRESSURE 2013-11-23 20:35:00 140 mm[Hg] DIASTOLIC BLOOD PRESSURE 2013-11-23 20:35:00 88 mm[Hg] WEIGHT 2013-11-23 20:35:00 86.364 kg WEIGHT 2013-03-03 06:24:00 85.4 kg SYSTOLIC BLOOD PRESSURE 2010-06-19 11:30:00 100 mm[Hg] DIASTOLIC BLOOD PRESSURE 2010-06-19 11:30:00 67 mm[Hg] WEIGHT 2010-06-19 09:32:00 68.039 kg SYSTOLIC BLOOD PRESSURE 2009-09-16 23:18:00 122 mm[Hg] DIASTOLIC BLOOD PRESSURE 2009-09-16 23:18:00 69 mm[Hg] WEIGHT 2009-09-16 20:43:00 49.895 kg SYSTOLIC BLOOD PRESSURE 2009-02-09 22:53:00 103 mm[Hg] DIASTOLIC BLOOD PRESSURE 2009-02-09 22:53:00 77 mm[Hg] WEIGHT 2009-02-09 22:53:00 49.442 kg
== END ==
LOC: EMPHEALTH 07:12
PROVIDERS: ATTEND Internal Medicine
DX: Z23 Encounter for immunization (principal)
CPT/HCPCS: 91300